=== PATIENT | male | born 1940 | race Two or more races ===

== ENCOUNTER 2023-06-27 17:52 | Inpatient (IN) | payer MEDICARE ==
[~2023-06-27] VITALS: Ht 172.7 cm; Wt 70.3 kg
[2023-06-27] MEDS ORDERED: TAMS-12 PO (19:43)
[2023-06-27] MEDS ORDERED: SIMV-49 PO (19:43)
[2023-06-27] MEDS ORDERED: TRAZ-257 PO (19:43)
[2023-06-27] MEDS ORDERED: OLOP2.5D12 EACHEYE (19:43)
[2023-06-27] MEDS ORDERED: ENAL20TA18 PO (19:43)
[2023-06-27] MEDS ORDERED: METF-881 PO (19:43)
[2023-06-27] MEDS ORDERED: DONE10TA44 PO (19:43)
[2023-06-27] MEDS ORDERED: AMLO10TA4 PO (19:43)
[2023-06-27 19:51] LABS: BASOPHILS % (AUTO) 0.2 % (0.0-2.0); EOSINOPHILS # (AUTO) 0.1 K/uL (0.0-0.7); EOSINOPHILS % (AUTO) 1.4 % (0.0-6.0); HEMATOCRIT 43 % (39-51); HEMOGLOBIN 13.9 g/dL (13.5-17.5); LYMPHOCYTES # (AUTO) 1.1 K/uL (0.8-4.8); LYMPHOCYTES % (AUTO) 11.7 % (20.0-44.0); MEAN CORPUSCULAR HEMOGLOBIN 29 PG (26.0-33.0); MEAN CORPUSCULAR HGB CONC 32 g/dl (31.0-36.0); MEAN CORPUSCULAR VOLUME 91 fL (80-96); MONOCYTES # (AUTO) 0.6 K/uL (0.1-1.30); MONOCYTES % (AUTO) 7.1 % (2.0-12.0); NEUTROPHILS # (AUTO) 7.2 K/uL (1.8-8.9); NEUTROPHILS % (AUTO) 79.6 % (43.0-81.0); PLATELET COUNT (AUTO) 256 K/uL (150-450); RED BLOOD CELL COUNT(AUTO) 4.73 MIL/uL (4.5-6.0); RED CELL DISTRIBUTION WIDTH 13.2 % (11.5-15.0)
[2023-06-27 20:03] LABS: CALCIUM, SERUM 9.4 mg/dL (8.5-10.1); CARBON DIOXIDE 28 mmol/L (21-32); CHLORIDE 101 mmol/L (98-107); CREATININE 1.2 mg/dL (0.6-1.3); GLUCOSE 167 mg/dL (74-106); POTASSIUM 4.8 mmol/L (3.5-5.1); SODIUM SERUM 136 mmol/L (136-145); UREA NITROGEN, BLOOD 26 mg/dL (7-18)
[2023-06-27 20:09] LABS: ALANINE AMINOTRANSFERASE 16 U/L (12-78); ALBUMIN 3.4 g/dL (3.4-5.0); ALKALINE PHOSPHATASE 88 U/L (46-116); ASPARTATE AMINOTRANSFERASE 11 U/L (15-37); BILIRUBIN,DIRECT 0.1 mg/dL (0.0-0.2); BILIRUBIN,TOTAL 0.2 mg/dL (0.2-1.0); TOTAL PROTEIN, SERUM 7.3 g/dL (6.4-8.2)
[2023-06-27 20:15] LABS: THYROID STIMULATING HORMONE 1.362 uIU/mL (0.358-3.74)
[2023-06-27] MEDS ORDERED: DEXTROSE 50%-WATER 50 ML DISP.SYRIN IV PRN (20:30)
[2023-06-27] MEDS ORDERED: IV NS 0.9% 1,000 ML BAG IV ONE (20:30)
[2023-06-27] MEDS ORDERED: ONDANSETRON HCL/PF 4 MG/2 ML VIAL IVP PRN (20:30)
[2023-06-27] MEDS ORDERED: MORPHINE SULFATE INJ 2 MG/ML DISP.SYRIN IV PRN (20:30)
[2023-06-27 20:33] LABS: INR 0.97 (0.91-1.10); PARTIAL THROMBOPLASTIN TIME 27.5 SEC (24.3-34.3); PROTHROMBIN TIME 10.3 SECS (9.2-11.1)
[2023-06-27] MEDS: BLOOD SUGAR DIAGNOSTIC 1 EACH STRIP IN SCH (22:55)
[2023-06-27] MEDS: DONEPEZIL 5 MG TABLET PO SCH (22:57)
[2023-06-28] VITALS: BP 133/67; TEMP 97.8; O2SAT 97
[2023-06-28] MEDS: HEPARIN SODIUM, PORCINE 5000 UNITS/1 ML VIAL SQ SCH ×3 (00:17→21:25)
[2023-06-28] MEDS ORDERED: LORAZEPAM INJ 2 MG/ML VIAL IV PRN (01:00)
[2023-06-28 04:00] VITALS: BP 135/64; TEMP 98; O2SAT 98
[2023-06-28 07:14] LABS: BASOPHILS % (AUTO) 0.3 % (0.0-2.0); EOSINOPHILS # (AUTO) 0.3 K/uL (0.0-0.7); EOSINOPHILS % (AUTO) 3.6 % (0.0-6.0); HEMATOCRIT 41 % (39-51); HEMOGLOBIN 13.4 g/dL (13.5-17.5); LYMPHOCYTES # (AUTO) 1.7 K/uL (0.8-4.8); LYMPHOCYTES % (AUTO) 22.1 % (20.0-44.0); MEAN CORPUSCULAR HEMOGLOBIN 30 PG (26.0-33.0); MEAN CORPUSCULAR HGB CONC 33 g/dl (31.0-36.0); MEAN CORPUSCULAR VOLUME 89 fL (80-96); MONOCYTES # (AUTO) 0.6 K/uL (0.1-1.30); MONOCYTES % (AUTO) 7.7 % (2.0-12.0); NEUTROPHILS % (AUTO) 66.3 % (43.0-81.0); PLATELET COUNT (AUTO) 239 K/uL (150-450); RED BLOOD CELL COUNT(AUTO) 4.55 MIL/uL (4.5-6.0); RED CELL DISTRIBUTION WIDTH 13.1 % (11.5-15.0); WHITE BLOOD COUNT (AUTO) 7.5 K/uL (4.3-11.0)
[2023-06-28 07:24] LABS: BILIRUBIN,TOTAL 0.4 mg/dL (0.2-1.0); CALCIUM, SERUM 8.9 mg/dL (8.5-10.1); CREATININE 0.9 mg/dL (0.6-1.3); MAGNESIUM 2.3 mg/dL (1.8-2.4); PHOSPHORUS 3.9 mg/dL (2.5-4.9); TOTAL PROTEIN, SERUM 6.4 g/dL (6.4-8.2)
[2023-06-28 07:30] VITALS: BP_SYST 150; BP_SYST 154; BP_DIAS 70; BP_DIAS 79; TEMP 98.1; TEMP 98.4; O2SAT 93; O2SAT 94
[2023-06-28] MEDS: DOCUSATE SODIUM LIQ 100 MG/10 ML UDC PO SCH ×2 (09:37→17:25)
[2023-06-28] MEDS: POLYETHYLENE GLYCOL 3350 17 GM POWD.PACK PO SCH (09:37)
[2023-06-28] MEDS: TAMSULOSIN 0.4 MG CAP.SR.24H PO SCH (09:38)
[2023-06-28] MEDS: AMLODIPINE BESYLATE 10 MG TABLET PO SCH (09:38)
[2023-06-28] MEDS: ENALAPRIL MALEATE (10 MG) 10 MG TABLET PO SCH (09:38)
[2023-06-28] MEDS: OLOPATADINE HCL 0.1% OPHTH BOTTLE EACHEYE SCH (09:47)
[2023-06-28] MEDS: BLOOD SUGAR DIAGNOSTIC 1 EACH STRIP IN SCH ×3 (11:55→21:38)
[2023-06-28 15:22] LABS: APPEARANCE,URINE SLIGHTLY CLOUDY (CLEAR); BILIRUBIN,URINE NEGATIVE (NEGATIVE); BLOOD, URINE 2+ Ery/uL (NEGATIVE); COLOR,URINE YELLOW (YELLOW); KETONES,URINE NEGATIVE (NEGATIVE); LEUKOCYTE ESTERASE ,URINE 2+ (NEGATIVE); NITRITE, URINE NEGATIVE (NEGATIVE); PH,URINE 6.5 (5.0-8.0); PROTEIN,URINE 1+ mg/dl (NEGATIVE); UGLUCOSE NEGATIVE (NEGATIVE)
[2023-06-28 16:00] VITALS: BP 148/69; TEMP 97.9; O2SAT 96
[2023-06-28 17:15] LABS: ADD URINE CULTURE YES; BACTERIA,URINE 2+ /HPF (None Seen); MUCUS,URINE Moderate /LPF (None Seen); SQUAMOUS EPITHELIAL CELL,UR None Seen /HPF (None Seen)
[2023-06-28] MEDS: ATORVASTATIN 10 MG TABLET PO SCH (17:25)
[2023-06-28 19:46] LABS: APPEARANCE,URINE SLIGHTLY CLOUDY (CLEAR); BILIRUBIN,URINE NEGATIVE (NEGATIVE); BLOOD, URINE 1+ Ery/uL (NEGATIVE); COLOR,URINE YELLOW (YELLOW); KETONES,URINE NEGATIVE (NEGATIVE); LEUKOCYTE ESTERASE ,URINE 2+ (NEGATIVE); NITRITE, URINE NEGATIVE (NEGATIVE); PROTEIN,URINE 1+ mg/dl (NEGATIVE); UGLUCOSE NEGATIVE (NEGATIVE); UROBILINOGEN,URINE 0.2 EU/dL (0.2)
[2023-06-28 20:00] VITALS: BP 138/66; TEMP 98; O2SAT 97
[2023-06-28 20:33] LABS: ADD URINE CULTURE YES; BACTERIA,URINE Rare /HPF (None Seen); MUCUS,URINE Moderate /LPF (None Seen); SQUAMOUS EPITHELIAL CELL,UR None Seen /HPF (None Seen)
[2023-06-28] MEDS: DONEPEZIL 5 MG TABLET PO SCH (21:29)
[2023-06-28] MEDS: ACETAMINOPHEN 325 MG TABLET PO PRN (21:29)
[2023-06-29] VITALS: BP 140/53; TEMP 97.7; O2SAT 94
[2023-06-29 05:00] VITALS: BP 163/51; TEMP 97.8; O2SAT 98
[2023-06-29] MEDS: BLOOD SUGAR DIAGNOSTIC 1 EACH STRIP IN SCH ×4 (07:24→21:13)
[2023-06-29] MEDS: OLOPATADINE HCL 0.1% OPHTH BOTTLE EACHEYE SCH (09:36)
[2023-06-29] MEDS: AMLODIPINE BESYLATE 10 MG TABLET PO SCH (09:37)
[2023-06-29] MEDS: ENALAPRIL MALEATE (10 MG) 10 MG TABLET PO SCH (09:37)
[2023-06-29] MEDS: POLYETHYLENE GLYCOL 3350 17 GM POWD.PACK PO SCH (09:37)
[2023-06-29] MEDS: DOCUSATE SODIUM LIQ 100 MG/10 ML UDC PO SCH ×3 (09:38→17:04)
[2023-06-29] MEDS: TAMSULOSIN 0.4 MG CAP.SR.24H PO SCH (09:41)
[2023-06-29] MEDS: CEFTRIAXONE 1 G in IV D5W 50 ML IV SCH (09:41)
[2023-06-29] MEDS: HEPARIN SODIUM, PORCINE 5000 UNITS/1 ML VIAL SQ SCH ×2 (09:52→21:12)
[2023-06-29] MEDS: INSULIN REGULAR, HUMAN 100 UNIT/ML 3 ML VIAL SQ PRN ×3 (11:22→21:53)
[2023-06-29 11:48] VITALS: BP 145/68; TEMP 97.9; O2SAT 96
[2023-06-29 16:24] VITALS: BP 162/61; TEMP 97.9; O2SAT 99
[2023-06-29 17:00] VITALS: BP 145/71
[2023-06-29] MEDS: ACETAMINOPHEN 325 MG TABLET PO PRN (17:04)
[2023-06-29] MEDS: ATORVASTATIN 10 MG TABLET PO SCH (17:04)
[2023-06-29 20:00] VITALS: BP 157/74; TEMP 98.2; O2SAT 96
[2023-06-29] MEDS: DONEPEZIL 5 MG TABLET PO SCH (21:11)
[2023-06-30] VITALS: BP 144/62; TEMP 97.7; O2SAT 97
[2023-06-30 05:00] VITALS: BP 152/61; TEMP 98; O2SAT 98
[2023-06-30] MEDS: BLOOD SUGAR DIAGNOSTIC 1 EACH STRIP IN SCH ×2 (07:27→12:02)
[2023-06-30] MEDS: INSULIN REGULAR, HUMAN 100 UNIT/ML 3 ML VIAL SQ PRN (07:28)
[2023-06-30 08:25] VITALS: BP 127/81; TEMP 98; O2SAT 99
[2023-06-30] MEDS: ENALAPRIL MALEATE (10 MG) 10 MG TABLET PO SCH (08:43)
[2023-06-30] MEDS: TAMSULOSIN 0.4 MG CAP.SR.24H PO SCH (08:44)
[2023-06-30] MEDS: DOCUSATE SODIUM LIQ 100 MG/10 ML UDC PO SCH (08:44)
[2023-06-30] MEDS: AMLODIPINE BESYLATE 10 MG TABLET PO SCH (08:44)
[2023-06-30] MEDS: POLYETHYLENE GLYCOL 3350 17 GM POWD.PACK PO SCH (08:44)
[2023-06-30] MEDS: OLOPATADINE HCL 0.1% OPHTH BOTTLE EACHEYE SCH (08:47)
[2023-06-30] MEDS: HEPARIN SODIUM, PORCINE 5000 UNITS/1 ML VIAL SQ SCH (08:50)
[2023-06-30] MEDS: CEFTRIAXONE 1 G in IV D5W 50 ML IV SCH (08:51)
[2023-06-30 11:48] VITALS: BP 139/74; TEMP 97.9; O2SAT 96
== END 2023-06-30 14:47 | DRG 690 ==
LOC: ER 18:10 → MED 22:02 → TELE 23:28
PROVIDERS: ADMIT Internal Medicine; ATTEND Internal Medicine
DX: N39.0 Urinary tract infection, site not specified (principal); G93.49 Other encephalopathy; R62.7 Adult failure to thrive; N40.0 Benign prostatic hyperplasia without lower urinary tract symptoms; I10 Essential (primary) hypertension; E11.9 Type 2 diabetes mellitus without complications; E78.5 Hyperlipidemia, unspecified; E86.0 Dehydration; Z79.84 Long term (current) use of oral hypoglycemic drugs; F03.90 Unspecified dementia, unspecified severity, without behavioral disturbance, psychotic disturbance, mood disturbance, and anxiety; Z20.822 Contact with and (suspected) exposure to COVID-19; Z68.23 Body mass index [BMI] 23.0-23.9, adult
CPT/HCPCS: 36415; 70450-TC; 71045-TC; 80048-TC; 80053-TC; 80076-TC; 81001; 82962-TC; 83735-TC; 84100-TC; 84443-TC; 84484-TC; 85025-TC; 85730-TC; 87086-TC; 97110-TC; 97530-TC; A4223; G0378; J0696; J1644; J1815; J2060; J7030; J7050; J7060